=== PATIENT | female | born 1965 | race Caucasian/White ===

== ENCOUNTER 2021-03-14 12:41 | Outpatient (REF) | payer MEDICARE, MEDICAID, SELFPAY ==
--- NOTE | ~2021-03-14 | XR_ITS ---
EXAMINATION: XR CHEST CLINICAL INFORMATION: Cough COMPARISON: October 17, 2015 TECHNIQUE: 2 views of the chest were obtained. FINDINGS: No significant abnormality is noted involving the heart, lungs, mediastinum, bony thorax or soft tissues. XR/XR chest 2V IMPRESSION: No acute disease.
== END 2021-03-14 12:42 | disposition home or self-care (01) ==
LOC: HO.XRAY 12:41
PROVIDERS: PCP Nurse Practitioner Primary Care; Visit Provider Nurse Practitioner Primary Care
DX: R05 Cough (principal)
CPT/HCPCS: 71046

== ENCOUNTER 2021-09-07 10:14 | Outpatient (REF) | payer MEDICARE, MEDICAID, SELFPAY ==
[2021-09-07 13:27] LABS: COVID-19 Test Negative (Negative)
== END 2021-09-07 10:15 | disposition home or self-care (01) ==
LOC: HO.LAB 10:14
PROVIDERS: Visit Provider Internal Medicine
DX: Z20.822 Contact with and (suspected) exposure to COVID-19 (principal)
CPT/HCPCS: 36415; 87635; C9803

== ENCOUNTER 2022-04-08 07:53 | Outpatient (REF) | payer MEDICARE, MEDICAID, SELFPAY ==
--- NOTE | 2022-04-08 | PFT_ITS ---
Forced vital capacity 69%, FEV1 68%. FEV1/FVC ratio is 76. [id number] 59%, and MVV 62%. Post bronchodilator therapy, there is a slight improvement in [id number]. Total lung capacity 81%. Residual volume 85%. Diffusion capacity 67%. CONCLUSION: There is a mild degree of obstructive airway disorder involving smaller airways. There is a slight improvement after bronchodilator therapy. Clinical correlation is recommended. MD DARRIUS Johnson/NICHOLAS / [id number]
== END 2022-04-08 07:54 | disposition home or self-care (01) ==
LOC: HO.RESP 07:53
PROVIDERS: PCP Nurse Practitioner Primary Care; Visit Provider Nurse Practitioner Primary Care
DX: J45.30 Mild persistent asthma, uncomplicated (principal)
CPT/HCPCS: 94060; 94727; 94729

== ENCOUNTER 2023-12-24 11:05 | Outpatient (REF) | payer MEDICARE, MEDICAID, SELFPAY ==
--- NOTE | ~2023-12-24 | XR_ITS ---
EXAMINATION: XR CHEST CLINICAL INFORMATION: Orders states cough and new onset of murmur, assess for pleural effusion or consolidation. Patient states she has a productive cough with thick mucus and shortness of breath for almost a month. COMPARISON: 03/14/2021 TECHNIQUE: 2 views of the chest were obtained. FINDINGS: There is no gross pneumothorax. Heart size is normal. No pleural effusion. No new focal consolidation to suggest pneumonia. Degenerative changes in the thoracic spine. XR/XR chest 2V IMPRESSION: No evidence of pneumonia. This study was presented today December 24, 2023 for interpretation. STAT results provided at this time as requested by referring provider.
== END 2023-12-24 11:06 | disposition home or self-care (01) ==
LOC: HO.HHCX 11:05
PROVIDERS: Visit Provider Emergency Medicine
DX: R05.9 Cough, unspecified (principal)
CPT/HCPCS: 71046

== ENCOUNTER 2024-03-08 10:44 | Outpatient (REF) | payer MEDICARE, MEDICAID, SELFPAY ==
[2024-03-08 12:20] LABS: Anion Gap 12 (12-20); Blood Urea Nitrogen 23 mg/dL (9-16); Carbon Dioxide 29 mmol/L (22-29); Chloride 103 mmol/L (96-108); Cholesterol 262 mg/dL (<200); Estimated Glomerular Filt Rate 47; Glucose Random 105 mg/dL (60-115); HDL Cholesterol 44 mg/dL (>40); LDL Cholesterol Calculated 182 mg/dL (<100); Potassium 3.8 mmol/L (3.3-5.1); Sodium 140 mmol/L (135-145); Triglycerides 183 mg/dL (<150)
== END 2024-03-08 10:45 | disposition home or self-care (01) ==
LOC: HO.HHCL 10:44
PROVIDERS: Visit Provider Nurse Practitioner Family
DX: I10 Essential (primary) hypertension (principal)
CPT/HCPCS: 36415; 80048; 80061

== ENCOUNTER 2024-12-03 13:19 | Outpatient (REF) | payer OTHER, SELFPAY ==
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
== END 2024-12-03 13:20 | disposition home or self-care (01) ==
LOC: HO.HHCX 13:19
PROVIDERS: Visit Provider Nurse Practitioner Family
DX: M25.562 Pain in left knee (principal); M25.572 Pain in left ankle and joints of left foot; V89.2XXD Person injured in unspecified motor-vehicle accident, traffic, subsequent encounter
CPT/HCPCS: 73564; 73610

== ENCOUNTER → 2024-12-03 13:21 | Outpatient (BNV) | payer OTHER, SELFPAY | PROVIDERS: Visit Provider Radiology Diagnostic Radiology | DX: M25.562 Pain in left knee (principal); M25.572 Pain in left ankle and joints of left foot | CPT/HCPCS: 73564; 73610 ==

== ENCOUNTER 2024-12-07 10:48 | Outpatient (REF) | payer OTHER, SELFPAY ==
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
--- OUTSIDE RECORDS SUMMARY | 2024-12-07 12:57 | XMS_ITS | Encounter Summary ---
Author Organization [employer] Address [address] [facility] [address] [place] [address] Care Team Providers Care Sales Merchandise Associate Name Role Phone Lo Pabon Primary Care Provider [phone] Encounter Details Date Type Department Care Team (Latest Contact Info) Description 12/03/2024 Travel Social History Tobacco Use Types Packs/Day Years Used Date Smoking Tobacco: Former Cigarettes Q uit: 2003 Passive Smoke Exposure: Never Smokeless Tobacco: Never Alcohol Use Standard Drinks/Week Comments Never 0 (1 standard drink = 0.6 oz pur e alcohol) Alcohol Answer Date Recorded Frequency of Alcohol Consumption Not on file 02/24/2024 Average Number of Drinks Not on file 024 Frequency of Binge Drinking Not on file 02/06 Score 0 02/24/2024 Depression Answer Date Recorded Patient Health Questionnaire-9 Score 0 02/24/2024 Patient Health Questionnaire-9 Score 0 02/24/2024 Last PHQ-9: Questionnaire Data Not on file 0 02/24/2024 Housing Stability Answer Date Recorded What is your housing situation today? I have megan jones 02/24/[address] you li ve. Do you have problems with any of the following? None of the above 02/24/2024 Food Insecurity Answer Date Recorded Within the past 12 months, y ou worried that your food would run out before you got money to buy more: Never True 02/24/2024 Within the past 12 months,th e food you bought just didn't last and you didn't have enough money to get more: Never True Transportation Answer Date Recorded In the past 12 months, has l ack of transportation kept you from medical appts, meetings, work or from getting things needed for daily living? No 02/24/2024 Utilities Answer Date Recorded In the past 12 months, has t he electric, gas, oil or water company threatened to shut off services in your home? No 02/24/2024 Depression Answer Date Recorded Patient Health Questionnaire-2 Score 0 02/24/2024 Internet Access Answer Date Recorded Internet Access Q1 Yes 05/20/2024 Internet Access Q2 I do not want or need it 05/09 Comments Unknown Sex and Gender Information Value Date Recorded Sex Assigned at Female 07/08/2022 10:21 AM EDT Legal Sex Female 10:21 AM EDT Gender Identity Female 07/08/2022 10:21 AM EDT Sexual Orientation Choose not to disclose 2021 10:21 AM EDT documented as of this encounter Plan of Treatment Upcoming Encounters Date Type Department Care Team (Late st Contact Info) Description 01/25/2025 9:30 AM EDT Office Visit [facility] MEDICINE [address] [place] [id number] Lo Pabon ANP [address] [place] [address] documented as of this encounter Visit Diagnoses Not on filedocumented in this encounter Additional Health Concerns Assessment Noted Time PHQ-9 Depression Total Score: 0 02/24/20 24 11:30 AM EDT documented as of this encounter Care Teams Sales Merchandise Associate Relationship Specialty Start Date End Date Lo Pabon ANP [address] [place] [phone] PCP - General Family Medicine 02/22/20 documented as of this encounter
--- OUTSIDE RECORDS SUMMARY | 2024-12-07 12:57 | XMS_ITS | Encounter Summary ---
Author Organization [employer] Address [address] [facility] [address] [place] [address] Care Team Providers Care Occup Therapist Name Role Phone oL Pabon Primary Care Provider [phone] Reason for Visit * Reason Onset Date Comments Nurse Triage 10/22/2023 Encounter Details Date Type Department Care Team ([facility] st Contact Info) Description 10/22/2023 Telephone [facility] MEDICINE [address] [place], [place] [phone] Lo Pabon ANP [address] [place], [place] [phone] Nurse Triage Social History Tobacco Use Types Packs/Day Years Used Date Smoking Tobacco: Never Passive Smoke Exposure: Never Comments Unknown Sex and Gender Information Value Date Recorded Sex Assigned at Female 07/08/2022 10:21 AM EDT Legal Sex Female 10:21 AM EDT Gender Identity Female 07/08/2022 10:21 AM EDT Sexual Orientation Choose not to disclose 2021 10:21 AM EDT documented as of this encounter Miscellaneous Notes * Telephone Encounter - Jaleesa Roberts RN - 10/22/2023 10:39 AM EST Triage call Pt reports going to [facility] today and tested positive for Covid. Pt symptoms are mild, runny nose, headache, sore throat. Pt does have some SOB and is using inhaler 2x daily as well as rescueinhaler 3x daily. Sampler And Test Preparer doesn't see inhalers listed on med list on chart. Pt is given [employer] televisit for paxlovid information , number is [phone]. Pt would like this information sent to PCP to see if possible for PCP to send prescription to pharmacy instead. No in house tele visits available. Reviewed home care advice with Pt, encouraged increase liquids especially warm liquids to 6-8 glasses daily. Pt is advised if fever of 103 or higher, and/or difficulty breathing with chest pain/pressure seek assist in nearest ED. Pt had no further questions. Pt agreed with disposition and advised will send this triage to Pt PCP as well. Protocol Used: COVID-19 - Diagnosed or Suspected (Adult) Care Advice Discussed: * Reassurance and Education - Positive COVID-19 Lab Test and Mild Symptoms * General Care Advice for COVID-19 Symptoms * Cough Medicines * Humidifier * Coughing Spells * Pain and Fever Medicines * Reasons To Call Back - Fever over 103 F (39.4 C) - Fever lasts over 3 days - Fever returns after being gone for 24 hours - Chest pain or difficulty breathing occurs - You become worse * COVID-19 - How to Protect Others - When You Are Sick With COVID-19 * Clean Your Hands Often * FAQ - When Can I Stop Home Isolation If I Am Sick With COVID-19? * Telephone Encounter - Ana [place] - 10/22/2023 9:34 AM EST Symptoms: COVID-19 Exposure, Sore Throat, Headache, Runny Nose Outcome: Schedule an urgent appointment (within 4 hours) or talk to a nurse or provider soon Reason: Started within the past 3 days, requesting paxlovid and at home testing kit The caller accepted this outcome Please contact pt at [phone] documented in this encounter Plan of Treatment Upcoming Encounters Date Type Department Care Team (Late st Contact Info) Description 01/25/2025 9:30 AM EDT Office Visit [facility] MEDICINE [address] [place] [address] Lo Pabon ANP [address] [place] [address] documented as of this encounter Visit Diagnoses Not on filedocumented in this encounter Care Teams Occup Therapist Relationship Specialty Start Date End Date Lo Pabon ANP [address] [place] [address] PCP - General Family Medicine 02/22/20 documented as of this encounter
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
--- OUTSIDE RECORDS SUMMARY | 2024-12-07 12:57 | XMS_ITS | Encounter Summary ---
Author Organization [employer] Address [address] [facility] [address] [place] [address] Care Team Providers Care Lead Software Development Engineer Name Role Phone Lo Pabon Primary Care Provider [phone] Encounter Details Date Type Department Care Team ([facility] st Contact Info) Description 02/20/2024 Orders Only [facility] [address] [place], [place] [phone] Candy Blair MD [address] [place], [place] [phone] Social History Tobacco Use Types Packs/Day Years Used Date Smoking Tobacco: Former Cigarettes Q uit: 2003 Passive Smoke Exposure: Never Smokeless Tobacco: Never Alcohol Answer Date Recorded Frequency of Alcohol [...] Recorded Patient Health Questionnaire-2 Score 0 02/24/2024 Comments Unknown Sex and Gender Information Value [...] Description 01/25/2025 9:30 AM EDT Office Visit [facility] [address] [place] [phone] Lo Pabon ANP [address] [place] [phone] documented as of this encounter Visit Diagnoses Not on filedocumented in this encounter Care Teams Lead Software Development Engineer Relationship Specialty Start Date End Date Lo Pabon ANP [address] [place] [phone] PCP - General Family Medicine 02/22/20 documented as of this encounter
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
== END 2024-12-07 10:49 | disposition home or self-care (01) ==
LOC: HO.US 10:48
PROVIDERS: PCP Nurse Practitioner Primary Care; Visit Provider Nurse Practitioner Family
DX: S80.12XD Contusion of left lower leg, subsequent encounter (principal); V89.2XXD Person injured in unspecified motor-vehicle accident, traffic, subsequent encounter
CPT/HCPCS: 76882

== ENCOUNTER → 2024-12-07 11:06 | Outpatient (BNV) | payer OTHER, SELFPAY | PROVIDERS: PCP Nurse Practitioner Primary Care; Visit Provider Radiology Diagnostic Radiology | DX: S80.12XA Contusion of left lower leg, initial encounter (principal) | CPT/HCPCS: 76882 ==

== ENCOUNTER 2025-05-03 08:17 | Outpatient (REF) | payer MEDICARE, MEDICAID, SELFPAY ==
--- OUTSIDE RECORDS SUMMARY | 2025-05-03 08:26 | XMS_ITS | Encounter Summary ---
Author Organization [employer] Address [address] [facility] 7t [place] [address] Care Team Providers Care Funeral Director/Embalmer/Owner Name Role Phone Lo Pabon Primary Care Provider [phone] Reason for Visit * Reason Onset Date Comments Nurse Triage 10/22/2023 Encounter Details Date Type Department Care Team (Late st Contact Info) Description 10/22/2023 Telephone [facility] MEDICINE [address] [place], [place] [phone] Lo Pabon ANP [address] [place], [place] [phone] Nurse Triage Social History Tobacco Use Types [...] EST Triage call Pt reports going to [facility] today and tested positive for Covid. Pt symptoms are mild, runny nose, headache, sore throat. Pt does have some SOB and is using inhaler 2x daily as well as rescueinhaler 3x daily. [employer] doesn't see inhalers listed on med list on chart. Pt is given [employer] televisit for paxlovid information , number is [phone]. Pt would like this information sent to [...] accepted this outcome Please contact pt at [phone] documented in this encounter Plan of Treatment Upcoming Encounters Date Type Department Care Team (Late st Contact Info) Description 05/05/2025 10:45 AM EDT Office Visit [facility] MEDICINE [address] [place] [address] Faye Velez FNP [address] [place] [address] 06/28/2025 11:00 AM EDT Office Visit [facility] MEDICINE [address] [place] [address] Lo Pabon ANP [address] [place] [address] documented as of this encounter Visit Diagnoses Not on filedocumented in this encounter Care Teams Funeral Director/Embalmer/Owner Relationship Specialty Start Date End Date Lo Pabon ANP [address] [place] [address] PCP - General Family Medicine 02/22/20 documented as of this encounter
--- OUTSIDE RECORDS SUMMARY | 2025-05-03 08:26 | XMS_ITS | Encounter Summary ---
Author Organization [employer] Address [address] [facility] 7t [place] [address] Care Team Providers Care Finisher Screwdown Name Role Phone Lo Pabon Primary Care Provider [phone] Reason for Visit * Reason Onset Date Comments Hospital Follow-up 04/04/2025 Encounter Details Date Type Department Care Team ([facility] st Contact Info) Description 04/04/[address] [facility] MEDICINE [address] [place], [place] [phone] Lo Pabon ANP [address] [place], [place] [phone] Hospital Follow-up Social History Tobacco Use Types Packs/Day Years [...] Date Recorded Patient Health Questionnaire-9 Score 0 01/25/2025 Patient Health Questionnaire-9 Score 0 01/25/2025 Last PHQ-9: Questionnaire Data Not on file 0 01/25/2025 Housing Stability Answer Date Recorded What is [...] Date Recorded Patient Health Questionnaire-2 Score 0 01/25/2025 Internet Access Answer Date Recorded Internet Access Q1 Yes 03/09/2025 Internet Access Q2 Not on file 03/09/2025 Comments Unknown Sex and Gender Information Value Date Recorded Sex Assigned at Female 07/08/2022 10:21 AM EDT Legal Sex Female 10:21 AM EDT Gender Identity Female 07/08/2022 10:21 AM EDT Sexual Orientation Choose not to disclose 2021 10:21 AM EDT documented as of this encounter Miscellaneous Notes * Telephone Encounter - Piedad Dey - 04/04/2025 10:53 AM EDT Tc from pt requesting a HDF appt. Hospital: [facility] Date of admission: 03/28/25 Discharge date: 04/02/25 Diagnosed: pancreatitis Pt requesting to follow up with PCP. Pt reported medication lisinopril was put on hold documented in this encounter Plan of Treatment Upcoming Encounters Date Type Department Care Team (Late st Contact Info) Description 05/05/2025 10:45 AM EDT Office Visit [facility] MEDICINE [address] [place] [phone] Faye Velez FNP [address] [place] [address] 06/28/2025 11:00 AM EDT Office Visit [facility] MEDICINE [address] [place] [address] Lo Pabon ANP [address] [place], [place] [phone] documented as of this encounter Visit Diagnoses Not on filedocumented in this encounter Additional Health Concerns Assessment Noted Time PHQ-9 Depression Total Score: 0 01/26/20 25 9:44 AM EDT documented as of this encounter Care Teams Finisher Screwdown Relationship Specialty Start Date End Date Lo Pabon ANP [address] [place] [address] PCP - General Family Medicine 02/22/20 documented as of this encounter
--- OUTSIDE RECORDS SUMMARY | 2025-05-03 08:26 | XMS_ITS | Encounter Summary ---
Author Organization [employer] Address [address] [facility] 7t [place] [address] Care Team Providers Care Template Checker Name Role Phone Lo Pabon Primary Care Provider [phone] Encounter Details Date Type Department Care Team ([facility] st Contact Info) Description 02/20/2024 Orders Only [facility] MED & PEDS [address] [place], [place] [phone] Candy Blair MD [address] [place], [place] [phone] Social History Tobacco Use Types Packs/Day Years [...] Description 05/05/2025 10:45 AM EDT Office Visit [facility] MEDICINE [address] [place] [phone] Faye Velez FNP [address] [place] [phone] 06/28/2025 11:00 AM EDT Office Visit [facility] MEDICINE [address] [place] [phone] Lo Pabon ANP [address] [place] [phone] documented as of this encounter Visit Diagnoses Not on filedocumented in this encounter Care Teams Template Checker Relationship Specialty Start Date End Date Lo Pabon ANP [address] [place] [address] PCP - General Family Medicine 02/22/20 documented as of this encounter
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
--- OUTSIDE RECORDS SUMMARY | 2025-05-03 08:26 | XMS_ITS | Encounter Summary ---
Author Organization [employer] Address [address] [facility] [address] [place] [address] Care Team Providers Care Senior Energy Consultant Name Role Phone Lo Pabon Primary Care Provider [phone] Encounter Details Date Type Department Care Team (Latest Contact Info) Description 04/28/2025 Travel Social History Tobacco Use Types Packs/Day Years Used Date Smoking Tobacco: Former Cigarettes Q uit: 2003 Passive Smoke Exposure: Past Smokeless Tobacco: Never Alcohol Use Standard Drinks/Week [...] Description 05/05/2025 10:45 AM EDT Office Visit [facility] [address] [place] [phone] Faye Velez FNP [address] [place] [phone] 06/28/2025 11:00 AM EDT Office Visit [facility] [address] [place] [phone] Lo Pabon ANP [address] [place] [phone] documented as of this encounter Visit Diagnoses Not on filedocumented in this encounter Additional Health Concerns Assessment Noted Time PHQ-9 Depression Total Score: 0 01/26/20 25 9:44 AM EDT documented as of this encounter Care Teams Senior Energy Consultant Relationship Specialty Start Date End Date Lo Pabon ANP [address] [place] [id number] PCP - General Family Medicine 02/22/20 documented as of this encounter
[2025-05-03 11:12] LABS: Hematocrit 38.7 % (37.0-47.0); Hemoglobin 13.0 g/dl (12.0-16.0)
[2025-05-03 11:31] LABS: Anion Gap 11 (12-20); Blood Urea Nitrogen 11 mg/dL (9-16); Calcium 9.2 mg/dL (8.4-10.2); Carbon Dioxide 26 mmol/L (22-29); Chloride 109 mmol/L (96-108); Cholesterol 189 mg/dL (<200); Estimated Glomerular Filt Rate 56; HDL Cholesterol 43 mg/dL (>40); Potassium 3.8 mmol/L (3.3-5.1); Sodium 142 mmol/L (135-145); Triglycerides 157 mg/dL (<150)
== END 2025-05-03 08:18 | disposition home or self-care (01) ==
LOC: HO.HHCL 08:17
PROVIDERS: PCP Nurse Practitioner Primary Care; Visit Provider Nurse Practitioner Family
DX: I10 Essential (primary) hypertension (principal); E78.2 Mixed hyperlipidemia; E03.9 Hypothyroidism, unspecified
CPT/HCPCS: 36415; 80048; 80061; 84443; 85014; 85018